=== PATIENT | female | born 1975 | race Caucasian/White ===

== ENCOUNTER 2018-08-27 06:12 | Emergency (ER) | payer OTHER ==
[~2018-08-27] VITALS: Ht 154.9 cm; Wt 41.7 kg
[2018-08-27 06:19] VITALS: BP 106/86
--- NOTE | 2018-08-27 06:33 | NUR ---
AT BEDSIDE FOR EVAL.
[2018-08-27] MEDS ORDERED: SULFAMETH/TRIMETH 800/160 MG 1 UDTAB TABLET PO ONE ×2 (06:39→07:00)
== END 2018-08-27 06:48 | disposition home or self-care (01) ==
LOC: ER 06:12
DX: L03.211 Cellulitis of face (principal); Z60.2 Problems related to living alone
CPT/HCPCS: A4606; Z7610

== ENCOUNTER 2018-12-10 20:26 | Emergency (ER) | payer MEDICAID ==
[~2018-12-10] VITALS: Ht 157.5 cm; Wt 41.7 kg
[2018-12-10 20:42] VITALS: BP 117/72
== END 2018-12-10 20:59 | disposition home or self-care (01) ==
LOC: ER 20:26
DX: J02.0 Streptococcal pharyngitis (principal); Z60.2 Problems related to living alone
CPT/HCPCS: 99283; A4606